=== PATIENT | female | born 1940 | race Caucasian/White ===

== ENCOUNTER 2020-06-10 09:12 | Inpatient (IN) | payer MEDICARE, BC ==
[~2020-06-10] VITALS: Ht 162.6 cm; Wt 56.2 kg
[2020-06-10] MEDS ORDERED: BACITRACIN ZINC OINT PACKET 1 EA PACKET TP ONE (09:30)
[2020-06-10] MEDS ORDERED: TDAP [DIPH/PERTUSSIS/TET] 0.5 ML VIAL IM ONE ×2 (09:30→09:41)
[2020-06-10] MEDS ORDERED: ACETAMINOPHEN 325 MG TABLET PO ONE (09:30)
--- NOTE | 2020-06-10 09:30 | NUR ---
wheeled out via rney for ct scan
[2020-06-10] MEDS ORDERED: ACETAMINOPHEN 325 MG TABLET ONE (09:41)
[2020-06-10] MEDS ORDERED: BACI/NEOM/POLY B OINT PKT 1 UDPKT PACKET ONE (09:41)
--- NOTE | 2020-06-10 11:45 | NUR ---
[facility] CALLED MOVING PICTURE OPERATOR PAGED.
[2020-06-10 12:20] LABS: BASOPHILS # (AUTO) 0.1 /CMM (0.0-0.2); BASOPHILS % (AUTO) 0.9 % (0.0-2.0); EOSINOPHILS % (AUTO) 1.1 % (0.0-6.0); HEMATOCRIT 44 % (33-45); HEMOGLOBIN 14.5 g/dL (11.5-14.8); LYMPHOCYTES # (AUTO) 1.4 /CMM (0.8-4.8); MEAN CORPUSCULAR HGB CONC 33 g/dl (31.0-36.0); MEAN CORPUSCULAR VOLUME 93 fL (82-100); MONOCYTES # (AUTO) 0.4 /CMM (0.1-1.30); MONOCYTES % (AUTO) 5.1 % (2.0-12.0); NEUTROPHILS # (AUTO) 6.3 /CMM (1.8-8.9); NEUTROPHILS % (AUTO) 75.9 % (43.0-81.0); PLATELET COUNT (AUTO) 196 /CMM (150-450); RED BLOOD CELL COUNT(AUTO) 4.77 MIL/uL (4.0-5.2); WHITE BLOOD COUNT (AUTO) 8.3 K/uL (4.3-11.0)
--- NOTE | 2020-06-10 12:51 | NUR ---
covid 19 swab collected and sent to lab
[2020-06-10] MEDS ORDERED: ONDANSETRON HCL/PF 4 MG/2 ML VIAL IVP PRN (13:00)
[2020-06-10] MEDS ORDERED: MAG HYDROX/AL HYDROX/SIMETH 30 ML UDC PO PRN (13:00)
[2020-06-10] MEDS ORDERED: MAGNESIUM HYDROXIDE 30 ML UDC PO PRN (13:00)
[2020-06-10] MEDS ORDERED: TEMAZEPAM 15 MG CAPSULE PO PRN (13:00)
[2020-06-10] MEDS ORDERED: HYDROCODONE/APAP 5/325MG TABLET PO PRN (13:00)
[2020-06-10] MEDS ORDERED: ACETAMINOPHEN 325 MG TABLET PO PRN (13:00)
[2020-06-10] MEDS ORDERED: MORPHINE SULFATE INJ 2 MG/ML DISP.SYRIN IV PRN (13:00)
[2020-06-10] MEDS ORDERED: Z GUARD REMEDY 2 OZ OINT TP PRN (13:00)
[2020-06-10 13:09] LABS: CALCIUM, SERUM 9.1 mg/dL (8.5-10.1); CREATININE 0.6 mg/dL (0.6-1.3); POTASSIUM 4.3 mmol/L (3.5-5.1)
--- NOTE | 2020-06-10 14:16 | NUR ---
CARLOS CHRISTIE [phone] NOT AT OFFICE CELL # [phone]
--- NOTE | 2020-06-10 14:26 | NUR ---
room [id number]
--- NOTE | 2020-06-10 14:29 | NUR ---
LAB CALLED COVID RESULT FOR PT NEGATIVE (-).
--- NOTE | 2020-06-10 14:35 | NUR ---
REPORT RECEIVED BY PORFIRIO LARSON FOR ADMISSION TO MED SURG
--- NOTE | 2020-06-10 14:37 | NUR ---
report given to Param LARSON for nadie
--- NOTE | 2020-06-10 14:45 | NUR ---
ADMISSION NOTE PATIENT ARRIVED TO FLOOR VIA GORNEY, NO S/S OF DISTRESS AT THIS TIME. PATIENT ADMITTED TO MED SURG SP FALL. C/O LEFT KNEE PAIN WITH CT SCAN SHOWING LEFT ACUTE, COMMINUTED, MINIMALLY DISPLACED PROXIMAL PATELLAR POLE FRACTURE. PATIENT IS CURRENTLY 98% O2 SAT ON ROOM AIR. VITAL SIGNS TAKEN, WNL. R FOREARM IV NOTED, INTACT AND PATENT. SKIN TEARS ON L HAND AND R FOREARM, OBTAINED FROM FALL. ABRASION ON L FOREHEAD AND NOSE OBTAINED FROM FALL. WOUND CONSULT ORDERED. PHOTOS TAKEN AND PUT IN CHART. WILL CONTINUE TO MONITOR PATIENT AND PROVIDE CARE.
--- NOTE | 2020-06-10 14:51 | NUR ---
wheeled patient via gurney accompanied by EMT in no distress. RN at bedside to assume care.
[2020-06-10 16:00] VITALS: BP 139/85
[2020-06-10] MEDS: ENOXAPARIN SODIUM 40 MG/0.4 ML DISP.SYRIN SQ SCH (16:36)
[2020-06-10] MEDS: PANTOPRAZOLE 40 MG TABLET.DR PO SCH (16:36)
[2020-06-10] MEDS: IV NS 0.9% 1,000 ML IV PRN (16:53)
--- NOTE | 2020-06-10 19:00 | NUR ---
RN CLOSING NOTE PATIENT CURRENTLY IN BED RESTING, NO S/S OF RESPIRATORY DISTRESS. PATIENT IS A/OX4, BUT FORGETFUL. ABLE TO MAKE NEEDS KNOWN. IV ON R FOREARM INTACT, NO S/S OF INFECTION AT THIS TIME. BED LOCKED IN LOWEST POSITION, ALL SAFETY MEASURES IN PLACE PER HOSPITAL PROTOCOL. CALL LIGHT WITHIN REACH. WILL ENDORSE TO TIP BANDER FOR CASANDRA.
[2020-06-10 20:00] VITALS: BP 142/72
--- NOTE | 2020-06-10 20:15 | NUR ---
RN NOTES PATIENT ALERT AND ORIENTED X3 WITH PERIODS OF FORGETFULLNESS. NO SOB OR ANY RESPIRATORY DISTRESS. O2 SAT 96% IN ROOM AIR. WITH IV RIGHT FOREARM, INTACT AND PATENT. NS @ 75ML/HR INFUSING WELL. STATES 3/10 PAIN ON LEFT KNEE AT THIS TIME, TOLERABLE. NO FACIAL GRIMACING. BED LOCKED AND IN LOWEST POSITION. SIDE RAILS UP X2. SAFETY MEASURES IMPLEMENTED. CALL LIGHT WITHIN REACH. WILL CONTINUE TO MONITOR.
[2020-06-11 04:00] VITALS: BP 149/77
[2020-06-11 06:05] LABS: BASOPHILS # (AUTO) 0.1 /CMM (0.0-0.2); BASOPHILS % (AUTO) 0.7 % (0.0-2.0); EOSINOPHILS % (AUTO) 0.3 % (0.0-6.0); HEMATOCRIT 40 % (33-45); HEMOGLOBIN 13.1 g/dL (11.5-14.8); LYMPHOCYTES % (AUTO) 11.5 % (20.0-44.0); MEAN CORPUSCULAR HGB CONC 33 g/dl (31.0-36.0); MEAN CORPUSCULAR VOLUME 92 fL (82-100); MONOCYTES # (AUTO) 0.5 /CMM (0.1-1.30); NEUTROPHILS # (AUTO) 6.7 /CMM (1.8-8.9); NEUTROPHILS % (AUTO) 81.5 % (43.0-81.0); PLATELET COUNT (AUTO) 189 /CMM (150-450); RED BLOOD CELL COUNT(AUTO) 4.31 MIL/uL (4.0-5.2); WHITE BLOOD COUNT (AUTO) 8.3 K/uL (4.3-11.0)
[2020-06-11 06:07] LABS: CALCIUM, SERUM 8.4 mg/dL (8.5-10.1); CARBON DIOXIDE 29 mmol/L (21-32); CHLORIDE 105 mmol/L (98-107); CREATININE 0.6 mg/dL (0.6-1.3); GLUCOSE 117 mg/dL (74-106); PHOSPHORUS 2.5 mg/dL (2.5-4.9); POTASSIUM 3.4 mmol/L (3.5-5.1); SODIUM SERUM 143 mmol/L (136-145); UREA NITROGEN, BLOOD 11 mg/dL (7-18)
[2020-06-11 06:22] LABS: CHOLESTEROL 178 mg/dL (<200); HDL CHOLESTEROL 69 mg/dL (40-60); LDL 96 mg/dL (0-99); THYROID STIMULATING HORMONE 1.455 uIU/mL (0.358-3.74); TRIGLYCERIDES 83 mg/dL (30-150)
--- NOTE | 2020-06-11 06:43 | NUR ---
RN NOTES PATIENT ALERT AND ORIENTED X3 WITH PERIODS OF FORGETFULLNESS. NO SOB OR ANY RESPIRATORY DISTRESS. O2 SAT 96% IN ROOM AIR. WITH IV RIGHT FOREARM, INTACT AND PATENT. NS @ 75ML/HR INFUSING WELL. NO SIGNIFICANT CHANGES IN THIS SHIFT. BED LOCKED AND IN LOWEST POSITION. SIDE RAILS UP X2. SAFETY MEASURES IMPLEMENTED. CALL LIGHT WITHIN REACH. WILL ENDORSE TO ONCOMING SHIFT.
[2020-06-11] MEDS: PANTOPRAZOLE 40 MG TABLET.DR PO SCH (07:30)
--- NOTE | 2020-06-11 08:00 | NUR ---
PT RECEIVED ALERT AND ORIENTED X 3, RA 95% O2 SAT, NO RESPIRATORY SYMPTOMS. RAPID NEGATIVE, REPORT FOR PT TRANSFER GIVEN TO SEBASTIÁN LARSON ON 3W
[2020-06-11] MEDS: IV NS 0.9% 1,000 ML IV PRN (08:31)
[2020-06-11 10:00] VITALS: BP 137/84
[2020-06-11] MEDS: POTASSIUM CL. PREMIX PERIPHER. 50 ML IV SCH ×2 (10:51→12:06)
--- NOTE | 2020-06-11 11:00 | NUR ---
Patient seen by dr. Cruz at bed side. Per patient does not need surgery. Knee immobilizer recommended and ordered. regular diet ordered per dr. Cruz
[2020-06-11 11:37] VITALS: BP 137/84
[2020-06-11 12:00] VITALS: BP 137/84
--- NOTE | 2020-06-11 14:01 | NUR ---
PT evaluation was done. Patient tolerated well with knee immobilizer on.
[2020-06-11 16:00] VITALS: BP 135/75
--- NOTE | 2020-06-11 19:26 | NUR ---
PATIENT IN STABLE CONDITION , ON ROOM AIR . PATIENT IS ABLE TO WALK TO BATHROOM WITH ASSISTANCE. LEFT KNEE IMMOBILIZER IN PLACE. IV LINE REMAINS INTACT. WILL ENDORSE TO NEXT SHIFT
--- NOTE | 2020-06-11 19:40 | NUR ---
MS/RN OPENING NOTES: RECEIVED REPORT FROM NEO LOWERY. PT IS ON THE BED, A/OX3-4. ABLE TO VERBALIZE NEEDS. WITH EPISODES OF FORGETFULNESS. ON ROOM AIR. SATURATING WELL, NO SOB, BREATHING EVEN AND UNLABORED. NO S/S OF DISTRESS. DENIES PAIN. PER PT, "THERE'S DISCOMFORT ON MY LEFT LEG ONLY WHEN I MOVE IT." PER REPORT, NO SURGERY NEEDED FOR PT. PT CAN WALK WITH ASSIST TOLERABLE. IMMOBILIZER IN PLACE. BRUISES PRESENT ON THE FACE, ABRASION NOTED AND SKIN TEAR ON LEFT HAND AND RIGHT FOREARM. COVERED WITH KERLIX. IV SITE ON THE RIGHT FA SL. SAFETY MEASURES IN PLACE. BED IN LOW, LCOKED POSITION WITH SR UPX2. CALL LIGHT WITHIN REACH. BED ALARM ON. WILL CONTINUE TO MONITOR.
[2020-06-11 20:00] VITALS: BP 118/66
[2020-06-11] MEDS: ENOXAPARIN SODIUM 40 MG/0.4 ML DISP.SYRIN SQ SCH (21:29)
--- NOTE | 2020-06-11 22:40 | NUR ---
MS/RN NOTES: PT. REFUSES IVF. EDUCATED ON RISKS AND BENEFITS. STILL REFUSED FOR DC PLANNING IN AM. NO SURGERY. WILL CONTINUE TO MONITOR.
--- NOTE | 2020-06-12 06:56 | NUR ---
MS/RN CLOSING NOTES: PT REMAINS ON THE BED, A/OX3-4. ABLE TO VERBALIZE NEEDS. WITH EPISODES OF FORGETFULNESS. HARD OF HEARING. ON ROOM AIR. SATURATING WELL, NO SOB, BREATHING EVEN AND UNLABORED. NO S/S OF DISTRESS. DENIES PAIN. IV SITE ON THE RIGHT FA SL. REFUSED IVF. SAFETY MEASURES IN PLACE. BED IN LOW, LOCKED POSITION WITH SR UPX2. CALL LIGHT WITHIN REACH. BED ALARM ON. WILL ENDORSE TO DAY SHIFT FOR CASANDRA.
--- NOTE | 2020-06-12 07:41 | NUR ---
MS RN OPENING NOTES: BEDSIDE ENDORSEMENT DONE. PATIENT IS IN THE BED, AWAKE AND VERBALLY RESPONSIVE. A/O X3-4, ABLE TO MAKE NEEDS KNOWN. WITH EPISODES OF FORGETFULNESS, ABLE TO BE REORIENTED. BREATHING EVEN AND UNLABORED, TOLERATING ROOM AIR. IV SITE RIGHT FA #22 INTACT AND PATENT. KNEE IMMOBILIZER NOTED ON L LEG. ABLE TO AMBULATE TO BATHROOM W/ ASSIST. SAFETY MEASURES IN PLACE: BED LOCKED AND ON LOWEST POSITION, SR UP X2, CALL LIGHT WITHIN REACH. WILL CONTINUE TO MONITOR.
[2020-06-12 08:00] VITALS: BP 135/78
[2020-06-12 08:16] LABS: BASOPHILS % (AUTO) 0.6 % (0.0-2.0); EOSINOPHILS % (AUTO) 1.6 % (0.0-6.0); HEMATOCRIT 39 % (33-45); LYMPHOCYTES # (AUTO) 1.6 /CMM (0.8-4.8); LYMPHOCYTES % (AUTO) 19.3 % (20.0-44.0); MEAN CORPUSCULAR HGB CONC 33 g/dl (31.0-36.0); MEAN CORPUSCULAR VOLUME 93 fL (82-100); MONOCYTES # (AUTO) 0.6 /CMM (0.1-1.30); MONOCYTES % (AUTO) 6.9 % (2.0-12.0); NEUTROPHILS # (AUTO) 5.8 /CMM (1.8-8.9); NEUTROPHILS % (AUTO) 71.6 % (43.0-81.0); PLATELET COUNT (AUTO) 186 /CMM (150-450); RED BLOOD CELL COUNT(AUTO) 4.25 MIL/uL (4.0-5.2); WHITE BLOOD COUNT (AUTO) 8.1 K/uL (4.3-11.0)
[2020-06-12 08:39] LABS: CALCIUM, SERUM 8.8 mg/dL (8.5-10.1); CREATININE 0.6 mg/dL (0.6-1.3); POTASSIUM 3.7 mmol/L (3.5-5.1)
[2020-06-12] MEDS: PANTOPRAZOLE 40 MG TABLET.DR PO SCH (09:09)
--- NOTE | 2020-06-12 16:23 | NUR ---
APPLIED BIOLOGY PROFESSOR NOTES PATIENT WAS SEEN BY DR. MONTEJO W/ ORDER FOR DISCHARGE TO [facility]; CONFIRMED BY OTTO VARNISH MAKER W/ PICKUP TIME OF 1530. PATIENT IS AWAKE AND VERBALLY RESPONSIVE, A/O X3, ABLE TO MAKE NEEDS KNOWN. DISCHARGE INSTRUCTIONS AND TEACHING GIVEN TO PATIENT; REPORT AND DISCHARGE INSTRUCTIONS ALSO GIVEN TO NEO BOYLE AT [facility]. PATIENT REFUSED PHOTOS OF SKIN ISSUES TO BE TAKEN, STATED THAT SHE DOES NOT NEED THEM RIGHT NOW. ALSO REFUSED PNA VACCINE. PER PATIENT, SHE ALREADY HAD FLU VACCINE 04/2020. IV LINE REMOVED. CHARGE NURSE AND MD AWARE OF DISCHARGE.
== END 2020-06-12 16:30 | DRG 563 ==
LOC: ER 09:15 → MEDSG1 14:28 → MED 06-11 07:47
PROVIDERS: ADMIT Nurse Practitioner Acute Care; ATTEND Nurse Practitioner Acute Care
DX: S82.042A Displaced comminuted fracture of left patella, initial encounter for closed fracture (principal); W01.0XXA Fall on same level from slipping, tripping and stumbling without subsequent striking against object, initial encounter; Y92.89 Other specified places as the place of occurrence of the external cause; M85.80 Other specified disorders of bone density and structure, unspecified site; F03.90 Unspecified dementia, unspecified severity, without behavioral disturbance, psychotic disturbance, mood disturbance, and anxiety; I10 Essential (primary) hypertension; E87.6 Hypokalemia; I70.0 Atherosclerosis of aorta; D32.0 Benign neoplasm of cerebral meninges; S61.412A Laceration without foreign body of left hand, initial encounter; S51.811A Laceration without foreign body of right forearm, initial encounter
CPT/HCPCS: 36415; 70450-TC; 71045-TC; 73120-TC; 73502; 73552; 73560-TC; 73700-TC; 80048-TC; 80061-TC; 83735-TC; 84100-TC; 84443-TC; 85025-TC; 85730-TC; 87081-TC; 90715; 97116-TC; 97530-TC; G0378; J1650; J3480; J7030